=== PATIENT | male | born 1965 | race Caucasian/White ===

== ENCOUNTER 2016-04-05 11:53 | Emergency (ER) | payer OTHER | END 2016-04-05 15:28 | disposition home or self-care (01) | LOC: D.ER 11:53 | DX: B02.9 Zoster without complications (principal); F17.200 Nicotine dependence, unspecified, uncomplicated ==

== ENCOUNTER 2016-04-09 20:57 | Emergency (ER) | payer OTHER | END 2016-04-09 23:44 | disposition home or self-care (01) | LOC: D.ER 20:57 | DX: L25.9 Unspecified contact dermatitis, unspecified cause (principal); F17.200 Nicotine dependence, unspecified, uncomplicated ==